=== PATIENT | male | born 1990 | race Caucasian/White ===

== ENCOUNTER 2021-03-11 16:05 | Emergency (ER) | payer BC, OTHER ==
[~2021-03-11] VITALS: Ht 170.2 cm; Wt 76.7 kg
[2021-03-11 16:05] VITALS: BP 120/78
[2021-03-11] MEDS ORDERED: BACI30OI9 TP (16:30)
== END 2021-03-11 17:04 | disposition home or self-care (01) ==
LOC: ER 16:29
DX: S61.234A Puncture wound without foreign body of right ring finger without damage to nail, initial encounter (principal); Z79.899 Other long term (current) drug therapy; W46.1XXA Contact with contaminated hypodermic needle, initial encounter; Y93.89 Activity, other specified; Y92.89 Other specified places as the place of occurrence of the external cause; Y99.8 Other external cause status

== ENCOUNTER 2025-04-11 15:06 | Emergency (ER) | payer BC, OTHER ==
[~2025-04-11] VITALS: Ht 170.2 cm; Wt 83.9 kg
[~2025-04-11 15:06] MED LIST: BACI30OI9 TP
[2025-04-11 15:31] VITALS: BP 128/72; TEMP 98.5
[2025-04-11] MEDS ORDERED: METH-647 PO (15:54)
[2025-04-11] MEDS ORDERED: LIDO30AD10 TP (15:54)
[2025-04-11] MEDS ORDERED: ACET325C7 PO (15:54)
[2025-04-11] MEDS: LIDOCAINE 5% (PATCH) 1 EA PATCH TP SCH (16:00)
[2025-04-11] MEDS ORDERED: KETOROLAC TROMETHAMINE 15 MG/ML VIAL ONE (16:02)
[2025-04-11] MEDS ORDERED: LIDOCAINE 5% (PATCH) 1 EA PATCH TP ONE (16:02)
[2025-04-11] MEDS: KETOROLAC TROMETHAMINE 15 MG/ML VIAL IM ONE (16:10)
[2025-04-11 16:14] VITALS: O2SAT 99
== END 2025-04-11 16:15 | disposition home or self-care (01) ==
LOC: ER 15:18
DX: M54.2 Cervicalgia (principal); M54.50 Low back pain, unspecified; V43.52XA Car driver injured in collision with other type car in traffic accident, initial encounter; Y93.89 Activity, other specified; Y92.488 Other paved roadways as the place of occurrence of the external cause; Y99.8 Other external cause status
CPT/HCPCS: 99283; J1885